=== PATIENT | female | born 1940 | race Caucasian/White ===

== ENCOUNTER → 2022-12-25 | Outpatient (CLI) | payer MEDICARE ==
[2022-12-25 15:48] LABS: Appearance, Urine Clear (Clear); Bilirubin, Urine Neg (Neg); Blood, Urine Neg (Neg); Color, Urine Yellow (P-Yellow); Glucose Qualitative, Urine Neg (Neg); Ketones, Urine Neg (Neg); Leukocyte Esterase, Urine Neg (Neg); Nitrite, Urine Neg (Neg); Protein, Urine Neg (Neg); Urobilinogen, Urine NORM (Normal); pH, Urine 6.5 (5.0-8.0)
[2022-12-25 16:02] LABS: Bacteria Rare /hpf; Red Blood Cells, Urine 0-2 /hpf (0-2); Squamous Epithelial Cells Few /hpf (Few); White Blood Cells, Urine 0-2 /hpf (0-5)
== END | disposition home or self-care (01) ==
LOC: LAB SHORT 11:22 → LAB 11:22 → LAB FUT 12-25 11:00
PROVIDERS: Internal Medicine
DX: N39.0 Urinary tract infection, site not specified (principal)
CPT/HCPCS: 81001; 81003

== ENCOUNTER 2023-03-02 08:14 | Emergency (ER) | payer MEDICARE ==
[~2023-03-02] VITALS: Ht 152.4 cm; Wt 49.9 kg
[2023-03-02 08:33] LABS: BASOPHILS ABSOLUTE AUTO 0.08 K/mm3 (0.00-0.23); BASOPHILS PERCENT AUTO 1 % (0-2); EOSINOPHILS ABSOLUTE AUTO 0.23 K/mm3 (0.00-0.68); EOSINOPHILS PERCENT AUTO 2 % (0-6); Hematocrit 38.8 % (33.0-51.0); Hemoglobin 13.2 g/dL (11.5-16.0); IMMATURE GRAN ABSOLUTE AUTO 0.01 K/mm3 (0.00-0.10); IMMATURE GRAN PERCENT AUTO 0 % (0-1); LYMPHOCYTES ABSOLUTE AUTO 2.17 K/mm3 (0.84-5.20); LYMPHOCYTES PERCENT AUTO 23 % (21-46); MONOCYTES ABSOLUTE AUTO 1.22 K/mm3 (0.16-1.47); MONOCYTES PERCENT AUTO 13 % (4-13); Mean Corpuscular HGB 28.7 pg (26.0-34.0); Mean Corpuscular Volume 84 fL (80-100); Mean Platelet Volume 10.4 fL (9.1-12.4); NEUTROPHILS ABSOLUTE AUTO 5.72 K/mm3 (1.96-9.15); NEUTROPHILS PERCENT AUTO 61 % (41-73); Platelet Count 248 K/mm3 (150-400); RDW Coefficient Variation 14.1 % (11.7-14.2); RDW Standard Deviation 43.3 fL (35.1-46.3); White Blood Cell Count 9.43 K/mm3 (4.00-11.30)
[2023-03-02 08:53] LABS: Albumin, Blood 3.1 g/dL (3.4-5.0); Albumin/Globulin Ratio 0.9 (0.8-1.8); Bilirubin, Total 0.5 mg/dL (0.1-1.0); Bun/Creatinine Ratio 28.5 (12.0-20.0); Calcium, Blood 8.6 mg/dL (8.5-10.1); Creatinine, Blood 0.77 mg/dL (0.40-1.00); Globulin, Blood 3.4 g/dL (2.2-4.0); Magnesium, Blood 2.3 mg/dL (1.6-2.4); Potassium, Blood 3.8 mmol/L (3.5-5.5); Total Protein, Blood 6.5 g/dL (6.4-8.2)
[2023-03-02] MEDS ORDERED: METO25ER (09:50)
[2023-03-02] MEDS ORDERED: EUTHYROX88 MCG (09:50)
[2023-03-02] MEDS ORDERED: FURO40 PO (11:47)
[2023-03-02 12:00] VITALS: BP 138/52
== END 2023-03-02 12:22 | disposition home or self-care (01) ==
LOC: ER 08:14
PROVIDERS: Emergency Medicine
DX: I50.9 Heart failure, unspecified (principal); Z88.8 Allergy status to other drugs, medicaments and biological substances; Z88.1 Allergy status to other antibiotic agents; I48.0 Paroxysmal atrial fibrillation
CPT/HCPCS: 71046; 80053; 83735; 83880; 84484; 85025; 93005; 93010; 99285-25

== ENCOUNTER 2023-03-12 14:15 | Observation (INO) | payer MEDICARE ==
[~2023-03-12] VITALS: Ht 152.4 cm; Wt 49.5 kg
[~2023-03-12 14:15] MED LIST: EUTHYROX88 MCG PO; FURO40 PO; METO25ER PO
[2023-03-12] MEDS ORDERED: ETHACRYNIC ACID PO (14:36)
[2023-03-12 14:45] LABS: BASOPHILS ABSOLUTE AUTO 0.09 K/mm3 (0.00-0.23); BASOPHILS PERCENT AUTO 1 % (0-2); EOSINOPHILS ABSOLUTE AUTO 0.22 K/mm3 (0.00-0.68); EOSINOPHILS PERCENT AUTO 2 % (0-6); Hematocrit 40.8 % (33.0-51.0); Hemoglobin 13.8 g/dL (11.5-16.0); IMMATURE GRAN ABSOLUTE AUTO 0.04 K/mm3 (0.00-0.10); IMMATURE GRAN PERCENT AUTO 0 % (0-1); LYMPHOCYTES ABSOLUTE AUTO 1.89 K/mm3 (0.84-5.20); LYMPHOCYTES PERCENT AUTO 18 % (21-46); MONOCYTES PERCENT AUTO 13 % (4-13); Mean Corpuscular HGB 28.8 pg (26.0-34.0); Mean Corpuscular HGB Conc 33.8 g/dL (31.5-36.5); Mean Corpuscular Volume 85 fL (80-100); Mean Platelet Volume 10.7 fL (9.1-12.4); NEUTROPHILS ABSOLUTE AUTO 6.93 K/mm3 (1.96-9.15); NEUTROPHILS PERCENT AUTO 66 % (41-73); Platelet Count 252 K/mm3 (150-400); RDW Coefficient Variation 13.9 % (11.7-14.2); RDW Standard Deviation 43.3 fL (35.1-46.3); Red Blood Cell Count 4.79 M/mm3 (3.80-5.20); White Blood Cell Count 10.57 K/mm3 (4.00-11.30)
[2023-03-12 15:03] LABS: Albumin, Blood 3.1 g/dL (3.4-5.0); Albumin/Globulin Ratio 0.9 (0.8-1.8); Bilirubin, Total 0.5 mg/dL (0.1-1.0); Calcium, Blood 8.5 mg/dL (8.5-10.1); Creatinine, Blood 0.81 mg/dL (0.40-1.00); Globulin, Blood 3.4 g/dL (2.2-4.0); Magnesium, Blood 2.2 mg/dL (1.6-2.4); Potassium, Blood 3.9 mmol/L (3.5-5.5); Total Protein, Blood 6.5 g/dL (6.4-8.2)
[2023-03-12 15:50] LABS: Influenza A, PCR NEGATIVE (NEGATIVE); Influenza B, PCR NEGATIVE (NEGATIVE); Resp Syncytial Virus, PCR NEGATIVE (NEGATIVE); SARS-Cov-2 (COVID-19) PCR, MMC NEGATIVE (NEGATIVE)
[2023-03-12 17:43] LABS: Free Thyroxine 1.32 ng/dL (0.70-1.60)
[2023-03-12 17:45] LABS: Thyroid Stimulating Hormone 0.432 uIU/mL (0.360-4.800)
[2023-03-12] MEDS ORDERED: DULO30 PO (19:52)
[2023-03-12] MEDS ORDERED: ELIQUIS2.5 MG PO (19:52)
[2023-03-12] MEDS ORDERED: VITB2 PO (19:54)
[2023-03-12 20:13] VITALS: BP 122/66
[2023-03-12] MEDS ORDERED: Crestor20 MG PO (20:15)
[2023-03-13 00:07] VITALS: BP 122/74
[2023-03-13 03:48] VITALS: BP 146/46
--- NOTE | 2023-03-13 04:11 | NUR ---
SHIFT SUMMARY ASSUMED CARE OF PT AT 1945. PT IS A/OX4. HEART SOUNDS REGULAR. LUNG SOUNDS HAVE FINE CRACKLES AT BASES. PT HAS NO COMPLAINTS. INDEPENDENT TO BATHROOM. BEEN OFF THE DILT GTT SINCE ARRIVAL TO UNIT. TELE SINUS APOLONIA. SLEPT T/O THE NOC.
[2023-03-13 04:42] LABS: Bun/Creatinine Ratio 28.2 (12.0-20.0); Calcium, Blood 8.8 mg/dL (8.5-10.1); Creatinine, Blood 0.78 mg/dL (0.40-1.00); Potassium, Blood 3.3 mmol/L (3.5-5.5)
[2023-03-13 08:06] VITALS: BP 140/53
[2023-03-13 11:51] VITALS: BP 148/130
[2023-03-13 15:23] VITALS: BP 129/46
[2023-03-13] MEDS ORDERED: FURO20 PO (17:10)
[2023-03-13] MEDS ORDERED: POTA10T PO (17:11)
--- NOTE | 2023-03-13 17:53 | NUR ---
DISCHARGE NOTE PT WAS ALERT AND ORIENTED X 4, VSS. HR NOTED TO BE SINUS RYTHM 50-60'S. SHE DENIED FEELINGS OF CHEST PAIN/PRESSURE, SOB AND NAUSEA/VOMITTING. SHE REPORTED OCCASIONAL DIZZINESS UPON AMBULATION. SHE WAS INDEPENDENT IN ROOM W/ FWW. DISCHARGE INSTRUCTIONS PROVIDED INCLUDING FOLLOW UP APPOINTMENT W/ PCP WELL W/ ACCOUNT RECEIVABLE ASSOCIATE DR. SILVA. PT REPORTED HAVING SCHEDULED APPOINTMENTS W/ BOTH DRRose Marie'S ALREADY. PT'S DAUGHTER KARSON WAS ALSO AT BEDSIDE. EDUCATION REGARDING DIAGNOSIS AND MEDICATIONS ALSO PROVIDED. PT LEFT PCU AT APPROX. 1730 W/ ALL OF PERSONAL BELONGINGS VIA WHEELCHAIR AND WAS ESCORTED OUTSIDE BY THIS RN.
== END 2023-03-13 17:38 | disposition home or self-care (01) ==
LOC: ER 14:15 → PCU 14:16
PROVIDERS: Nurse Practitioner Acute Care; Student in an Organized Health Care Education/Training Program; ADMIT Internal Medicine
DX: I48.0 Paroxysmal atrial fibrillation (principal); I50.9 Heart failure, unspecified; E03.9 Hypothyroidism, unspecified; Z79.890 Hormone replacement therapy; Z79.899 Other long term (current) drug therapy; Z88.2 Allergy status to sulfonamides; Z88.6 Allergy status to analgesic agent; Z11.52 Encounter for screening for COVID-19
CPT/HCPCS: 0241U; 36415; 71045; 80048; 80053; 83735; 83880; 84145; 84439; 84443; 84484; 85025; 93005; 93010; 93306; 96365; 96375; 96376; 99285-25; A9270; G0378; J1940

== ENCOUNTER 2023-03-24 21:32 | Observation (INO) | payer MEDICARE ==
[~2023-03-24] VITALS: Ht 167.6 cm; Wt 50.5 kg
[~2023-03-24 21:32] MED LIST changes: +Crestor20 MG PO; +DULO30 PO; +ELIQUIS2.5 MG PO; +ETHACRYNIC ACID PO; +FURO20 PO; +POTA10T PO; +VITB2 PO
[2023-03-24 22:01] LABS: BASOPHILS PERCENT AUTO 1 % (0-2); EOSINOPHILS ABSOLUTE AUTO 0.28 K/mm3 (0.00-0.68); EOSINOPHILS PERCENT AUTO 2 % (0-6); Hematocrit 38.3 % (33.0-51.0); Hemoglobin 13.1 g/dL (11.5-16.0); IMMATURE GRAN ABSOLUTE AUTO 0.03 K/mm3 (0.00-0.10); IMMATURE GRAN PERCENT AUTO 0 % (0-1); LYMPHOCYTES ABSOLUTE AUTO 2.58 K/mm3 (0.84-5.20); LYMPHOCYTES PERCENT AUTO 22 % (21-46); MONOCYTES ABSOLUTE AUTO 1.63 K/mm3 (0.16-1.47); MONOCYTES PERCENT AUTO 14 % (4-13); Mean Corpuscular HGB 28.9 pg (26.0-34.0); Mean Corpuscular HGB Conc 34.2 g/dL (31.5-36.5); Mean Corpuscular Volume 85 fL (80-100); Mean Platelet Volume 10.3 fL (9.1-12.4); NEUTROPHILS ABSOLUTE AUTO 6.88 K/mm3 (1.96-9.15); NEUTROPHILS PERCENT AUTO 60 % (41-73); Platelet Count 262 K/mm3 (150-400); RDW Coefficient Variation 13.6 % (11.7-14.2); RDW Standard Deviation 42.5 fL (35.1-46.3); Red Blood Cell Count 4.53 M/mm3 (3.80-5.20)
[2023-03-24 22:20] LABS: Albumin, Blood 3.2 g/dL (3.4-5.0); Albumin/Globulin Ratio 0.9 (0.8-1.8); Bilirubin, Total 0.3 mg/dL (0.1-1.0); Bun/Creatinine Ratio 34.7 (12.0-20.0); Calcium, Blood 8.8 mg/dL (8.5-10.1); Creatinine, Blood 0.92 mg/dL (0.40-1.00); Globulin, Blood 3.4 g/dL (2.2-4.0); Potassium, Blood 3.9 mmol/L (3.5-5.5); Total Protein, Blood 6.6 g/dL (6.4-8.2)
[2023-03-25 01:32] LABS: Magnesium, Blood 2.4 mg/dL (1.6-2.4); Phosphorus, Blood 3.8 mg/dL (2.5-4.9); Thyroid Stimulating Hormone 0.536 uIU/mL (0.360-4.800)
[2023-03-25 03:13] LABS: Anti-Xa UFH, PHA Monitoring 0.33 IU/mL; International Normalized Ratio 1.04; Prothrombin Time Results 10.9 Sec (9.7-11.5)
[2023-03-25 06:03] LABS: BASOPHILS ABSOLUTE AUTO 0.07 K/mm3 (0.00-0.23); BASOPHILS PERCENT AUTO 1 % (0-2); EOSINOPHILS ABSOLUTE AUTO 0.23 K/mm3 (0.00-0.68); EOSINOPHILS PERCENT AUTO 2 % (0-6); Hematocrit 37.5 % (33.0-51.0); Hemoglobin 12.6 g/dL (11.5-16.0); IMMATURE GRAN ABSOLUTE AUTO 0.03 K/mm3 (0.00-0.10); IMMATURE GRAN PERCENT AUTO 0 % (0-1); LYMPHOCYTES ABSOLUTE AUTO 2.32 K/mm3 (0.84-5.20); LYMPHOCYTES PERCENT AUTO 23 % (21-46); MONOCYTES ABSOLUTE AUTO 1.34 K/mm3 (0.16-1.47); MONOCYTES PERCENT AUTO 14 % (4-13); Mean Corpuscular HGB 28.4 pg (26.0-34.0); Mean Corpuscular HGB Conc 33.6 g/dL (31.5-36.5); Mean Corpuscular Volume 85 fL (80-100); Mean Platelet Volume 10.4 fL (9.1-12.4); NEUTROPHILS ABSOLUTE AUTO 5.91 K/mm3 (1.96-9.15); NEUTROPHILS PERCENT AUTO 60 % (41-73); Platelet Count 241 K/mm3 (150-400); RDW Coefficient Variation 13.7 % (11.7-14.2); RDW Standard Deviation 42.8 fL (35.1-46.3); Red Blood Cell Count 4.43 M/mm3 (3.80-5.20)
[2023-03-25 06:43] LABS: Bun/Creatinine Ratio 31.2 (12.0-20.0); Calcium, Blood 8.6 mg/dL (8.5-10.1); Creatinine, Blood 0.93 mg/dL (0.40-1.00); Potassium, Blood 4.1 mmol/L (3.5-5.5)
[2023-03-25 08:43] VITALS: BP 141/44
--- NOTE | 2023-03-25 10:00 | NUR ---
PT ARRIVED TO ROOM AT 0915 AND SETTLED IN TO BED. DAUGHTER AT BEDSIDE WITHIN 20 MINUTES. PT STATES SHE IS ON A GLUTEN FREE/LACTOSE FREE DIET. DENIES CHEST PAIN OR NAUSEA. ASSISTED UP TO BATHROOM WITH 1 PERSON ASSIST USING FWW. REPORTS FEELING A BIT DIZZY WHICH SHE STATES IS VERY COMMON AND USUALLY RESOLVES WITHIN MOMENTS. STATES SHE HAS A BALANCE ISSUE WELL SINCE A BELLS PALSY EVENT.
[2023-03-25] MEDS ORDERED: LEVOTHYROXINE75 MC9 PO (11:05)
[2023-03-25] MEDS ORDERED: MAG GLYCINATE100 MG PO (11:09)
[2023-03-25] MEDS ORDERED: Isosorbide Mono30 MG PO (11:11)
[2023-03-25 12:43] LABS: Source, Urine Clean Catch
[2023-03-25 12:46] LABS: Appearance, Urine Clear (Clear); Bilirubin, Urine Neg (Neg); Blood, Urine Neg (Neg); Color, Urine Yellow (P-Yellow); Glucose Qualitative, Urine Neg (Neg); Ketones, Urine Neg (Neg); Leukocyte Esterase, Urine Neg (Neg); Nitrite, Urine Neg (Neg); Protein, Urine Neg (Neg); Urobilinogen, Urine NORM (Normal)
[2023-03-25 15:19] VITALS: BP 106/40
[2023-03-25] MEDS ORDERED: METO25 PO (17:55)
[2023-03-25] MEDS ORDERED: ASPI81CH PO (17:55)
--- NOTE | 2023-03-25 18:42 | NUR ---
DISCHARGE INSTRUCTIONS COMPLETED AND DISCUSSED WITH PT EXPRESSING UNDERSTANDING. DAUGHTER HERE TO PICK PT UP. TO [facility] VIA W/C.
== END 2023-03-25 18:40 | disposition home or self-care (01) ==
LOC: ER 21:32 → ERHOLD 21:33 → MEDS 03-25 08:17
PROVIDERS: Emergency Medicine; Student in an Organized Health Care Education/Training Program; ADMIT Internal Medicine
DX: G45.9 Transient cerebral ischemic attack, unspecified (principal); I25.10 Atherosclerotic heart disease of native coronary artery without angina pectoris; I48.0 Paroxysmal atrial fibrillation; E03.9 Hypothyroidism, unspecified; I21.4 Non-ST elevation (NSTEMI) myocardial infarction; N18.2 Chronic kidney disease, stage 2 (mild)
CPT/HCPCS: 36415; 71046; 80048; 80053; 81003; 83735; 84100; 84443; 84484; 85025; 85520; 85610; 85730; 93005; 93010; 96361; 96365; 96366; 99285-25; A9270; G0378; J1644; J7030

== ENCOUNTER 2024-07-20 12:16 | Emergency (ER) | payer MEDICARE ==
[~2024-07-20] VITALS: Ht 152.4 cm; Wt 49.9 kg
[~2024-07-20 12:16] MED LIST changes: +ASPI81CH PO; +Isosorbide Mono30 MG PO; +LEVOTHYROXINE75 MC9 PO; +MAG GLYCINATE100 MG PO; +METO25 PO; +NEBI5 PO
[2024-07-20 12:22] VITALS: BP 122/101
[2024-07-20 12:48] LABS: BASOPHILS ABSOLUTE AUTO 0.08 K/mm3 (0.00-0.23); BASOPHILS PERCENT AUTO 1 % (0-2); EOSINOPHILS PERCENT AUTO 2 % (0-6); Hematocrit 43.2 % (33.0-51.0); Hemoglobin 14.8 g/dL (11.5-16.0); IMMATURE GRAN ABSOLUTE AUTO 0.03 K/mm3 (0.00-0.10); IMMATURE GRAN PERCENT AUTO 0 % (0-1); LYMPHOCYTES PERCENT AUTO 18 % (21-46); MONOCYTES ABSOLUTE AUTO 0.98 K/mm3 (0.16-1.47); MONOCYTES PERCENT AUTO 10 % (4-13); Mean Corpuscular HGB 29.2 pg (26.0-34.0); Mean Corpuscular HGB Conc 34.3 g/dL (31.5-36.5); Mean Corpuscular Volume 85 fL (80-100); Mean Platelet Volume 10.1 fL (9.1-12.4); NEUTROPHILS ABSOLUTE AUTO 6.66 K/mm3 (1.96-9.15); NEUTROPHILS PERCENT AUTO 69 % (41-73); Platelet Count 285 K/mm3 (150-400); RDW Coefficient Variation 14.7 % (11.7-14.2); RDW Standard Deviation 45.6 fL (35.1-46.3); Red Blood Cell Count 5.07 M/mm3 (3.80-5.20); White Blood Cell Count 9.65 K/mm3 (4.00-11.30)
[2024-07-20 13:15] LABS: Source, Urine Clean Catch
[2024-07-20 13:21] LABS: Albumin, Blood 3.4 g/dL (3.4-5.0); Bilirubin, Total 0.5 mg/dL (0.1-1.0); Bun/Creatinine Ratio 29.7 (12.0-20.0); Calcium, Blood 8.8 mg/dL (8.5-10.1); Creatinine, Blood 0.81 mg/dL (0.40-1.00); Globulin, Blood 3.5 g/dL (2.2-4.0); Potassium, Blood 3.7 mmol/L (3.5-5.5); Total Protein, Blood 6.9 g/dL (6.4-8.2)
[2024-07-20 13:25] LABS: Appearance, Urine Clear (Clear); Bilirubin, Urine Neg (Neg); Blood, Urine 1+ (Neg); Color, Urine Yellow (P-Yellow); Glucose Qualitative, Urine Neg (Neg); Ketones, Urine Neg (Neg); Leukocyte Esterase, Urine Neg (Neg); Nitrite, Urine Neg (Neg); Protein, Urine Neg (Neg); Urobilinogen, Urine NORM (Normal)
[2024-07-20 13:43] LABS: Bacteria Rare /hpf; Squamous Epithelial Cells Not Seen /hpf (Few); White Blood Cells, Urine 0-2 /hpf (0-5)
== END 2024-07-20 14:21 | disposition home or self-care (01) ==
LOC: ER 12:16
PROVIDERS: Physician Assistant
DX: G45.4 Transient global amnesia (principal); I48.91 Unspecified atrial fibrillation; E03.9 Hypothyroidism, unspecified; I50.30 Unspecified diastolic (congestive) heart failure; I25.10 Atherosclerotic heart disease of native coronary artery without angina pectoris; Z88.2 Allergy status to sulfonamides; Z88.8 Allergy status to other drugs, medicaments and biological substances; Z79.82 Long term (current) use of aspirin; Z79.01 Long term (current) use of anticoagulants; Z91.011 Allergy to milk products; Z79.890 Hormone replacement therapy; Z79.899 Other long term (current) drug therapy
CPT/HCPCS: 80053; 81001; 83690; 85025; 99284

== ENCOUNTER → 2024-07-22 | Outpatient (CLI) | payer MEDICARE | LOC: LAB 15:07 → LAB SHORT 15:07 | DX: R30.0 Dysuria (principal) | CPT/HCPCS: 87077; 87086; 87186 ==

== ENCOUNTER 2024-08-26 13:42 | Emergency (ER) | payer MEDICARE ==
[~2024-08-26] VITALS: Ht 152.4 cm; Wt 49.9 kg
[2024-08-26 14:03] VITALS: BP 102/42
[2024-08-26 14:29] LABS: BASOPHILS ABSOLUTE AUTO 0.09 K/mm3 (0.00-0.23); BASOPHILS PERCENT AUTO 1 % (0-2); EOSINOPHILS ABSOLUTE AUTO 0.17 K/mm3 (0.00-0.68); EOSINOPHILS PERCENT AUTO 1 % (0-6); Hematocrit 38.8 % (33.0-51.0); Hemoglobin 13.8 g/dL (11.5-16.0); IMMATURE GRAN ABSOLUTE AUTO 0.03 K/mm3 (0.00-0.10); IMMATURE GRAN PERCENT AUTO 0 % (0-1); LYMPHOCYTES ABSOLUTE AUTO 1.12 K/mm3 (0.84-5.20); LYMPHOCYTES PERCENT AUTO 9 % (21-46); MONOCYTES ABSOLUTE AUTO 1.39 K/mm3 (0.16-1.47); MONOCYTES PERCENT AUTO 12 % (4-13); Mean Corpuscular HGB 29.8 pg (26.0-34.0); Mean Corpuscular HGB Conc 35.6 g/dL (31.5-36.5); Mean Corpuscular Volume 84 fL (80-100); Mean Platelet Volume 10.4 fL (9.1-12.4); NEUTROPHILS ABSOLUTE AUTO 9.18 K/mm3 (1.96-9.15); NEUTROPHILS PERCENT AUTO 77 % (41-73); Platelet Count 296 K/mm3 (150-400); RDW Coefficient Variation 13.8 % (11.7-14.2); RDW Standard Deviation 42.6 fL (35.1-46.3); Red Blood Cell Count 4.63 M/mm3 (3.80-5.20); White Blood Cell Count 11.98 K/mm3 (4.00-11.30)
[2024-08-26 14:58] LABS: Albumin, Blood 3.3 g/dL (3.4-5.0); Albumin/Globulin Ratio 0.9 (0.8-1.8); Bilirubin, Total 0.7 mg/dL (0.1-1.0); Bun/Creatinine Ratio 20.2 (12.0-20.0); Calcium, Blood 8.6 mg/dL (8.5-10.1); Creatinine, Blood 0.79 mg/dL (0.40-1.00); Globulin, Blood 3.7 g/dL (2.2-4.0); Potassium, Blood 3.7 mmol/L (3.5-5.5)
[2024-08-26 16:24] LABS: Source, Urine Clean Catch
[2024-08-26 16:33] LABS: Appearance, Urine Clear (Clear); Bilirubin, Urine Neg (Neg); Blood, Urine 1+ (Neg); Color, Urine Yellow (P-Yellow); Glucose Qualitative, Urine Neg (Neg); Ketones, Urine Neg (Neg); Leukocyte Esterase, Urine Neg (Neg); Nitrite, Urine Neg (Neg); Protein, Urine Neg (Neg); Urobilinogen, Urine NORM (Normal)
[2024-08-26 16:45] LABS: Bacteria Rare /hpf; Red Blood Cells, Urine 0-2 /hpf (0-2); Squamous Epithelial Cells Not Seen /hpf (Few); White Blood Cells, Urine 0-2 /hpf (0-5)
[2024-08-26 17:43] LABS: Free Thyroxine 1.65 ng/dL (0.70-1.60)
[2024-08-26 17:46] LABS: Thyroid Stimulating Hormone 0.882 uIU/mL (0.360-4.800); Triiodothyronine, Free 2.67 pg/mL (2.18-3.98)
== END 2024-08-26 18:14 | disposition home or self-care (01) ==
LOC: ER 13:42
PROVIDERS: Emergency Medicine; Physician Assistant
DX: R41.0 Disorientation, unspecified (principal); T43.215A Adverse effect of selective serotonin and norepinephrine reuptake inhibitors, initial encounter; I48.91 Unspecified atrial fibrillation; Z88.2 Allergy status to sulfonamides; Z88.6 Allergy status to analgesic agent; Z91.018 Allergy to other foods; Z91.011 Allergy to milk products; Z79.899 Other long term (current) drug therapy; Z79.890 Hormone replacement therapy; Z79.1 Long term (current) use of non-steroidal anti-inflammatories (NSAID); Z79.2 Long term (current) use of antibiotics; Z79.52 Long term (current) use of systemic steroids
CPT/HCPCS: 70450; 80053; 81001; 84439; 84443; 84481; 85025; 93005; 93010; 99285-25

== ENCOUNTER 2024-08-29 12:56 | Inpatient (IN) | payer MEDICARE ==
[~2024-08-29] VITALS: Ht 152.4 cm; Wt 50.9 kg
[2024-08-29] MEDS ORDERED: NS 500 ML IV SCH (13:35)
[2024-08-29 13:44] LABS: BASOPHILS PERCENT AUTO 1 % (0-2); EOSINOPHILS ABSOLUTE AUTO 0.16 K/mm3 (0.00-0.68); EOSINOPHILS PERCENT AUTO 1 % (0-6); Hematocrit 41.4 % (33.0-51.0); IMMATURE GRAN ABSOLUTE AUTO 0.04 K/mm3 (0.00-0.10); IMMATURE GRAN PERCENT AUTO 0 % (0-1); LYMPHOCYTES ABSOLUTE AUTO 1.24 K/mm3 (0.84-5.20); LYMPHOCYTES PERCENT AUTO 10 % (21-46); MONOCYTES ABSOLUTE AUTO 1.32 K/mm3 (0.16-1.47); MONOCYTES PERCENT AUTO 11 % (4-13); Mean Corpuscular HGB 29.3 pg (26.0-34.0); Mean Corpuscular HGB Conc 33.8 g/dL (31.5-36.5); Mean Corpuscular Volume 87 fL (80-100); Mean Platelet Volume 9.9 fL (9.1-12.4); NEUTROPHILS ABSOLUTE AUTO 9.11 K/mm3 (1.96-9.15); NEUTROPHILS PERCENT AUTO 76 % (41-73); Platelet Count 339 K/mm3 (150-400); RDW Standard Deviation 44.2 fL (35.1-46.3); Red Blood Cell Count 4.78 M/mm3 (3.80-5.20); White Blood Cell Count 11.97 K/mm3 (4.00-11.30)
[2024-08-29] MEDS ORDERED: ETHACRYNIC ACID PO (13:48)
[2024-08-29] MEDS ORDERED: Metoprolol Tartrate 1 MG/ML 5 ML VIAL IV PRN (13:55)
[2024-08-29 14:12] LABS: Bun/Creatinine Ratio 19.3 (12.0-20.0); Calcium, Blood 8.6 mg/dL (8.5-10.1); Creatinine, Blood 0.83 mg/dL (0.40-1.00); Free Thyroxine 1.64 ng/dL (0.70-1.60); Magnesium, Blood 2.2 mg/dL (1.6-2.4); Potassium, Blood 3.7 mmol/L (3.5-5.5); Thyroid Stimulating Hormone 0.48 uIU/mL (0.360-4.800)
[2024-08-29] MEDS ORDERED: Lidocaine 2% Viscous Soln 20 ML,Nystatin 100,000 Unit/ml Susp 20 ML,Mag Hydrox/Al Hydro... MT PRN (15:45)
[2024-08-29] MEDS ORDERED: Ondansetron HCl 2 MG / ML 2ML Vial IV PRN (16:05)
[2024-08-29] MEDS ORDERED: NS 1,000 ML IV SCH (16:05)
[2024-08-29] MEDS ORDERED: Mag Sulfate 1 GM/D5% 100ML 100 ML IV STA (16:11)
[2024-08-29] MEDS ORDERED: Potassium Chloride 40 MEQ in NS 250 ML IV ONE (16:15)
[2024-08-29 17:07] LABS: Albumin, Blood 3.2 g/dL (3.4-5.0); Bilirubin, Direct 0.1 mg/dL (0.0-0.3); Bilirubin, Indirect 0.5 mg/dL (0.1-0.7); Bilirubin, Total 0.6 mg/dL (0.1-1.0); Globulin, Blood 3.1 g/dL (2.2-4.0); Total Protein, Blood 6.3 g/dL (6.4-8.2)
--- NOTE | 2024-08-29 18:20 | NUR ---
ADMISSION REPORT RECEIVED FROM ER NURSE. PATIENT ARRIVES TO PCU 19. PATIENT ABLE TO STAND AND PIVOT TO PCU BED WITH MINIMAL ASSISTANCE. POTASSIUM AND FLUIDS INFUSING PER EMAR. AMIO GTT STOPPED IN ER BUT BAG CAME WITH PATIENT. PATIENT ASKED ABOUT RESTARTING AMIO GTT, PATIENT STATED "MY ARM GOT NUMB ANG TINGLED AND MADE ME UNCOMFORTABLE". THIS RNEDUCATED PATIENT ON THE MEDICATIONAND ASKED PATIENT IF SHE WOULD WANT TO RESTART THE AMIO AND PATIENT STATED "I MIGHT TRY". PATIENT ATTEMPTED TO USE BESIDE COMMODE TO VOID, UNABLE. PATIENT ALERT, ORIENTED x-34 BUT FORGETFUL ABOUT SOME INFORMATION. BP STABLE. TELE READING BETWEEN ST AND AFLUTTER 120-130s. DENIES CHEST PAIN. PATIENT ORIENTED TO ROOM AND CALL LIGHT SYSTEM. CALL LIGHT IN REACH. WILL REPORT TO OWNER RN.
[2024-08-29 18:55] VITALS: BP 110/60
--- NOTE | 2024-08-29 19:36 | NUR ---
CARE ASSUMED NOW FOR THIS PATIENT. REPORT RECEIVED FROM DAY RN. PATIENT AND DAUGHTER ABLE TO PARTICIPATE IN BEDSIDE REPORT. CONTINUE CARE
[2024-08-29 20:29] VITALS: BP 132/75
[2024-08-29 20:44] LABS: Source, Urine Clean Catch
[2024-08-29 20:49] LABS: Bilirubin, Urine Neg (Neg); Blood, Urine 1+ (Neg); Glucose Qualitative, Urine Neg (Neg); Ketones, Urine 1+ (Neg); Leukocyte Esterase, Urine 3+ (Neg); Nitrite, Urine Neg (Neg); Protein, Urine 1+ (Neg); Specific Gravity, Urine 1.015 (1.003-1.022); Urobilinogen, Urine NORM (Normal)
[2024-08-29 20:55] LABS: Appearance, Urine Clear (Clear); Color, Urine Yellow (P-Yellow)
[2024-08-29 20:56] LABS: Bacteria Few /hpf; Red Blood Cells, Urine 0-2 /hpf (0-2); Squamous Epithelial Cells Not Seen /hpf (Few); Transitional Epithelial Cells Few /hpf (0-Rare); White Blood Cells, Urine 50-100 /hpf (0-5)
[2024-08-29] MEDS ORDERED: Apixaban 5 MG Tab PO SCH (21:00)
[2024-08-29 22:36] VITALS: BP 123/89
--- NOTE | 2024-08-29 22:54 | NUR ---
PATIENT CONVERTED TO NSR @ 2235 AMIODARONE DRIP INFUSING @33.3 MLS/HR
[2024-08-30] VITALS (21 sets, daily range): BP systolic 95–150; BP diastolic 42–112
[2024-08-30 04:47] LABS: BASOPHILS ABSOLUTE AUTO 0.08 K/mm3 (0.00-0.23); BASOPHILS PERCENT AUTO 1 % (0-2); EOSINOPHILS ABSOLUTE AUTO 0.33 K/mm3 (0.00-0.68); EOSINOPHILS PERCENT AUTO 3 % (0-6); Hematocrit 35.1 % (33.0-51.0); Hemoglobin 12.1 g/dL (11.5-16.0); IMMATURE GRAN ABSOLUTE AUTO 0.05 K/mm3 (0.00-0.10); IMMATURE GRAN PERCENT AUTO 1 % (0-1); LYMPHOCYTES ABSOLUTE AUTO 2.06 K/mm3 (0.84-5.20); LYMPHOCYTES PERCENT AUTO 19 % (21-46); MONOCYTES ABSOLUTE AUTO 1.25 K/mm3 (0.16-1.47); MONOCYTES PERCENT AUTO 11 % (4-13); Mean Corpuscular HGB 29.8 pg (26.0-34.0); Mean Corpuscular HGB Conc 34.5 g/dL (31.5-36.5); Mean Corpuscular Volume 87 fL (80-100); Mean Platelet Volume 10.3 fL (9.1-12.4); NEUTROPHILS ABSOLUTE AUTO 7.17 K/mm3 (1.96-9.15); NEUTROPHILS PERCENT AUTO 66 % (41-73); Platelet Count 288 K/mm3 (150-400); RDW Coefficient Variation 14.4 % (11.7-14.2); RDW Standard Deviation 45.1 fL (35.1-46.3); Red Blood Cell Count 4.06 M/mm3 (3.80-5.20); White Blood Cell Count 10.94 K/mm3 (4.00-11.30)
--- NOTE | 2024-08-30 05:12 | NUR ---
PATIENT AWAKE ALL NIGHT LONG. AT 0515 DECIDES SHE MIGHT TRY TO SLEEP. ANXIOUS ABOUT THE MEDICATIONS SHE IS RECEIVING. CONVERTED TO SINUS RHYTHM LAST NIGHT. AMIODORONE DRIP INFUSING. VOIDING ON BSC. STAND BY ASSIST. STLL HAVING SOME DRY MOUTH WITH PAIN. CONTINE CARE
[2024-08-30 05:14] LABS: Albumin, Blood 2.8 g/dL (3.4-5.0); Bilirubin, Total 0.5 mg/dL (0.1-1.0); Bun/Creatinine Ratio 18.5 (12.0-20.0); Calcium, Blood 8.1 mg/dL (8.5-10.1); Creatinine, Blood 0.81 mg/dL (0.40-1.00); Globulin, Blood 2.9 g/dL (2.2-4.0); Potassium, Blood 3.9 mmol/L (3.5-5.5); Total Protein, Blood 5.7 g/dL (6.4-8.2)
[2024-08-30] MEDS ORDERED: Levothyroxine Sodium 0.05 MG Tab PO SCH (06:00)
[2024-08-30] MEDS ORDERED: Carvedilol 3.125 MG Tab PO SCH (08:00)
[2024-08-30] MEDS ORDERED: Enoxaparin 30 MG/0.3 ML SYR SC SCH (09:00)
[2024-08-30] MEDS ORDERED: CefTRIAXone Sodium 1,000 MG in NS 100 ML IV SCH (09:50)
--- NOTE | 2024-08-30 16:36 | NUR ---
SHIFT SUMMARY PT REMAINS ALERT AND ORIENTED WITH SOME FORGETFULNESS. BP STABLE. HR REMAINS NSR. O2 SATS >90% ON RA. PT DENIES ANY PAIN. PT UP WITH SBA FOR TRANSFERS TO BSC NEEDED. PLAN TO TRANSFER TO MEDICAL FLOOR IN APPROXIMATELY 20 MIN WHEN AMIO GTT IS COMPLETE. REPORT GIVEN TO MEDICAL FLOOR RN.
--- NOTE | 2024-08-30 17:24 | NUR ---
UPDATE PT TAKEN TO MEDICAL FLOOR VIA WC WITH ALL BELONGINGS. DAUGHTER MARGARITA NOTIFIED OF ROOM CHANGE
--- NOTE | 2024-08-30 18:20 | NUR ---
SHIFT SUMMARY PT TRANSFERED FROM PCU 19 TO ROOM 326 THIS SHIFT AT 1730. PT NOTED TO BE A&O X4 WITH SOME CONFUSION AND FORGETFULNESS NOTED. PT NOTED TO TRANSFER FROM WHEELCHAIR TO BED VIA SBA. PT DAUGHTER NOTED TO BE AT BEDSIDE. PT CONT WITH TELE AND NOTED TO BE NSR.
[2024-08-30] MEDS ORDERED: Amiodarone HCl 200 MG Tab PO SCH (21:00)
[2024-08-30] MEDS ORDERED: Doxycycline Hyclate 100 MG TAB PO SCH (21:00)
[2024-08-30] MEDS ORDERED: Magnesium Oxide 400 MG Tab PO SCH (21:00)
[2024-08-31] VITALS (7 sets, daily range): BP systolic 99–135; BP diastolic 42–65
[2024-08-31 06:09] LABS: BASOPHILS ABSOLUTE AUTO 0.06 K/mm3 (0.00-0.23); BASOPHILS PERCENT AUTO 1 % (0-2); EOSINOPHILS ABSOLUTE AUTO 0.24 K/mm3 (0.00-0.68); EOSINOPHILS PERCENT AUTO 2 % (0-6); Hematocrit 33.1 % (33.0-51.0); Hemoglobin 11.4 g/dL (11.5-16.0); IMMATURE GRAN ABSOLUTE AUTO 0.04 K/mm3 (0.00-0.10); IMMATURE GRAN PERCENT AUTO 0 % (0-1); LYMPHOCYTES ABSOLUTE AUTO 1.56 K/mm3 (0.84-5.20); LYMPHOCYTES PERCENT AUTO 12 % (21-46); MONOCYTES ABSOLUTE AUTO 1.65 K/mm3 (0.16-1.47); MONOCYTES PERCENT AUTO 13 % (4-13); Mean Corpuscular HGB 29.5 pg (26.0-34.0); Mean Corpuscular HGB Conc 34.4 g/dL (31.5-36.5); Mean Corpuscular Volume 86 fL (80-100); Mean Platelet Volume 10.3 fL (9.1-12.4); NEUTROPHILS ABSOLUTE AUTO 9.03 K/mm3 (1.96-9.15); NEUTROPHILS PERCENT AUTO 72 % (41-73); Platelet Count 241 K/mm3 (150-400); RDW Coefficient Variation 14.2 % (11.7-14.2); RDW Standard Deviation 44.6 fL (35.1-46.3); Red Blood Cell Count 3.86 M/mm3 (3.80-5.20); White Blood Cell Count 12.58 K/mm3 (4.00-11.30)
[2024-08-31 06:32] LABS: Calcium, Blood 8.6 mg/dL (8.5-10.1); Creatinine, Blood 0.8 mg/dL (0.40-1.00); Potassium, Blood 3.9 mmol/L (3.5-5.5)
[2024-08-31] MEDS ORDERED: Bumetanide 1 MG Tab PO SCH (09:00)
[2024-08-31] MEDS ORDERED: DULoxetine HCL 30 MG Cap DR PO SCH (09:00)
[2024-08-31] MEDS ORDERED: Acyclovir 400 MG Tab PO SCH (09:00)
--- NOTE | 2024-08-31 17:49 | NUR ---
PT A&O X4, LIMITED CODE, DAUGHTERS AT BEDSIDE MOST OF THE DAY, SBA FOR TRANSFERS WITH WALKER, CONT OF URINE, BREATHING UNLABORED ON ROOM AIR, HAS LARGE SCRATCH UNDER RIGHT BREAST. PT SB IN 50'S FOR MOST OF DAY ON TELE AND CONVERTED AROUND 1750 TO AFIB WITH RATE OF 100-110. NO OTHER NEW CONCERNS THIS SHIFT.
[2024-08-31] MEDS ORDERED: DULoxetine HCL 20 MG Cap DR PO SCH (18:00)
--- NOTE | 2024-08-31 18:33 | NUR ---
REVIEWED CHARTING DONE BY AUSTIN GALE, STUDENT NURSE AND I AGREE WITH HER DOCUMENTATION FOR THIS PATIENT.
--- NOTE | 2024-08-31 22:45 | NUR ---
CARDIAC TIP TESTER REPORTS PT RHYTHM - STV 130s-150s. PT AMBULATING IN RESTROOM, PT ASYMPTOMATIC.
[2024-09-01 04:50] VITALS: BP 121/59
--- NOTE | 2024-09-01 06:13 | NUR ---
SHIFT SUMMARY S/P ADMIT R/T UTI. NO ACUTE CHANGES OVERNIGHT. VSS, TELE - AFIB. ONE EVENT PER PREVIOUS NOTE. TOLERATING ORALS. PO ABX PER EMAR. VOIDING IND. AMBULATES USING FWW c GB & SBA. PT DENIES PAIN. CALL LIGHT IN REACH, BED IN LOWEST POSITION, WILL REPORT TO DAY RN.
[2024-09-01 07:42] VITALS: BP 129/66
[2024-09-01 09:16] LABS: BASOPHILS ABSOLUTE AUTO 0.07 K/mm3 (0.00-0.23); BASOPHILS PERCENT AUTO 1 % (0-2); EOSINOPHILS ABSOLUTE AUTO 0.25 K/mm3 (0.00-0.68); EOSINOPHILS PERCENT AUTO 2 % (0-6); Hemoglobin 13.2 g/dL (11.5-16.0); IMMATURE GRAN ABSOLUTE AUTO 0.06 K/mm3 (0.00-0.10); IMMATURE GRAN PERCENT AUTO 1 % (0-1); LYMPHOCYTES ABSOLUTE AUTO 1.33 K/mm3 (0.84-5.20); LYMPHOCYTES PERCENT AUTO 11 % (21-46); MONOCYTES ABSOLUTE AUTO 1.35 K/mm3 (0.16-1.47); MONOCYTES PERCENT AUTO 11 % (4-13); Mean Corpuscular HGB 29.5 pg (26.0-34.0); Mean Corpuscular HGB Conc 33.8 g/dL (31.5-36.5); Mean Corpuscular Volume 87 fL (80-100); Mean Platelet Volume 10.4 fL (9.1-12.4); NEUTROPHILS ABSOLUTE AUTO 9.51 K/mm3 (1.96-9.15); NEUTROPHILS PERCENT AUTO 76 % (41-73); Platelet Count 262 K/mm3 (150-400); RDW Coefficient Variation 14.5 % (11.7-14.2); RDW Standard Deviation 46.3 fL (35.1-46.3); Red Blood Cell Count 4.48 M/mm3 (3.80-5.20); White Blood Cell Count 12.57 K/mm3 (4.00-11.30)
[2024-09-01 09:29] LABS: Bun/Creatinine Ratio 22.7 (12.0-20.0); Calcium, Blood 8.7 mg/dL (8.5-10.1); Creatinine, Blood 0.88 mg/dL (0.40-1.00); Potassium, Blood 3.5 mmol/L (3.5-5.5)
[2024-09-01] MEDS ORDERED: Potassium Chloride 20 MEQ TabCR PO ONE (12:00)
[2024-09-01] MEDS ORDERED: Cymbalta20 MG PO (15:03)
[2024-09-01] MEDS ORDERED: BUME1 PO (15:23)
[2024-09-01] MEDS ORDERED: EUTHYROX50 MCG PO (15:25)
[2024-09-01] MEDS ORDERED: ACYC400 PO (15:26)
[2024-09-01] MEDS ORDERED: AMIODARONE HCL400 M2 PO (15:29)
[2024-09-01] MEDS ORDERED: POTCHL20ER PO (15:30)
[2024-09-01] MEDS ORDERED: NYST237S MT (15:31)
[2024-09-01] MEDS ORDERED: MAG-OXIDE MAGN200 MG PO (15:33)
--- NOTE | 2024-09-01 16:11 | NUR ---
DISCHARGE SUMMARY PT DISCAHRGED BACK HOME TO [facility] WITH HH TO FOLLOW. EDUCATED PT AND PT DAUGHTER AT BASELINE REGARDING DISCHARGE PACKET INCLUDING MEDICATIONS ORDERED AND NEED TO FOLLOW UP WITH PCP AND FITNESS SALES CONSULTANT. HARD SCRIPT PROVIDED FOR FOLLOW UP LABS IN 3-5 DAYS. IV REMOVED AND SITE APPEARS WNL. MEDS ORIGINALLY FAXED TO [facility] [place] BUT DAUGHTER REPORTS MEDS WOUKLD NOT BE AVAILABLE UNTIL THE , SO THIS RN REFAXED TO [facility] PER DAUGHTER REQUEST. PT WHEELED DOWN BY JUDICIAL ADMINISTRATIVE ASSISTANT. PT ABLE TO STAND TRANSFER INDEPENDENTLY TO WHEELCHAIR.
== END 2024-09-01 16:16 | disposition home health service (06) | DRG 308 ==
LOC: ER 12:56 → ERHOLD 12:57 → PCU 12:57 → MEDS 08-30 17:26
PROVIDERS: Emergency Medicine; Internal Medicine; ADMIT Internal Medicine
DX: I48.0 Paroxysmal atrial fibrillation (principal); I50.43 Acute on chronic combined systolic (congestive) and diastolic (congestive) heart failure; N39.0 Urinary tract infection, site not specified; I11.0 Hypertensive heart disease with heart failure; E03.9 Hypothyroidism, unspecified; I25.10 Atherosclerotic heart disease of native coronary artery without angina pectoris; F41.9 Anxiety disorder, unspecified; F32.A Depression, unspecified; I08.0 Rheumatic disorders of both mitral and aortic valves; T46.2X5A Adverse effect of other antidysrhythmic drugs, initial encounter; K12.0 Recurrent oral aphthae; R53.1 Weakness; Z86.73 Personal history of transient ischemic attack (TIA), and cerebral infarction without residual deficits; Z88.2 Allergy status to sulfonamides; Z88.8 Allergy status to other drugs, medicaments and biological substances; Z91.018 Allergy to other foods; Z79.890 Hormone replacement therapy; Z79.82 Long term (current) use of aspirin; Z79.01 Long term (current) use of anticoagulants; Z79.899 Other long term (current) drug therapy; I25.2 Old myocardial infarction
CPT/HCPCS: 36415; 71045; 80048; 80053; 80076; 81001; 83735; 83880; 84439; 84443; 85025; 87086; 93005; 93010; 93306; 96361; 96365; 96375; 96376; 97110; 97116; 97162; 97530; 99285-25; A9270; G0378; J0282; J2405; J3475; J3480; J7030; J7050; J7060

== ENCOUNTER → 2024-09-05 | Outpatient (CLI) | payer MEDICARE ==
[~2024-09-05] MED LIST changes: +ACYC400 PO; +AMIODARONE HCL400 M2 PO; +BUME1 PO; +Cymbalta20 MG PO; +EUTHYROX50 MCG PO; +MAG-OXIDE MAGN200 MG PO; +NYST237S MT; +POTCHL20ER PO
[2024-09-05 13:22] LABS: Albumin, Blood 3.1 g/dL (3.4-5.0); Albumin/Globulin Ratio 0.9 (0.8-1.8); Bilirubin, Total 0.6 mg/dL (0.1-1.0); Bun/Creatinine Ratio 21.2 (12.0-20.0); Calcium, Blood 8.2 mg/dL (8.5-10.1); Creatinine, Blood 0.99 mg/dL (0.40-1.00); Globulin, Blood 3.3 g/dL (2.2-4.0); Potassium, Blood 3.3 mmol/L (3.5-5.5); Total Protein, Blood 6.4 g/dL (6.4-8.2)
== END ==
LOC: LAB SHORT 12:23 → LAB 12:23
PROVIDERS: Internal Medicine
DX: I48.91 Unspecified atrial fibrillation (principal)
CPT/HCPCS: 80053

== ENCOUNTER 2024-09-13 05:04 | Emergency (ER) | payer MEDICARE ==
[~2024-09-13] VITALS: Ht 149.9 cm; Wt 49.0 kg
[2024-09-13 05:43] LABS: BASOPHILS ABSOLUTE AUTO 0.08 K/mm3 (0.00-0.23); BASOPHILS PERCENT AUTO 1 % (0-2); EOSINOPHILS ABSOLUTE AUTO 0.38 K/mm3 (0.00-0.68); EOSINOPHILS PERCENT AUTO 3 % (0-6); Hematocrit 36.7 % (33.0-51.0); Hemoglobin 12.5 g/dL (11.5-16.0); IMMATURE GRAN ABSOLUTE AUTO 0.05 K/mm3 (0.00-0.10); IMMATURE GRAN PERCENT AUTO 0 % (0-1); LYMPHOCYTES ABSOLUTE AUTO 1.55 K/mm3 (0.84-5.20); LYMPHOCYTES PERCENT AUTO 11 % (21-46); MONOCYTES ABSOLUTE AUTO 1.52 K/mm3 (0.16-1.47); MONOCYTES PERCENT AUTO 11 % (4-13); Mean Corpuscular HGB 29.2 pg (26.0-34.0); Mean Corpuscular HGB Conc 34.1 g/dL (31.5-36.5); Mean Corpuscular Volume 86 fL (80-100); Mean Platelet Volume 10.1 fL (9.1-12.4); NEUTROPHILS ABSOLUTE AUTO 10.72 K/mm3 (1.96-9.15); NEUTROPHILS PERCENT AUTO 75 % (41-73); Platelet Count 305 K/mm3 (150-400); RDW Coefficient Variation 15.2 % (11.7-14.2); RDW Standard Deviation 47.5 fL (35.1-46.3); Red Blood Cell Count 4.28 M/mm3 (3.80-5.20)
[2024-09-13 06:03] LABS: Albumin, Blood 3.3 g/dL (3.4-5.0); Bilirubin, Total 0.8 mg/dL (0.1-1.0); Bun/Creatinine Ratio 22.7 (12.0-20.0); Calcium, Blood 8.5 mg/dL (8.5-10.1); Creatinine, Blood 0.88 mg/dL (0.40-1.00); Globulin, Blood 3.4 g/dL (2.2-4.0); Magnesium, Blood 2.4 mg/dL (1.6-2.4); Potassium, Blood 3.2 mmol/L (3.5-5.5); Total Protein, Blood 6.7 g/dL (6.4-8.2)
[2024-09-13] MEDS ORDERED: Potassium Chloride 40 MEQ in NS 250 ML IV ONE (06:35)
[2024-09-13 06:51] LABS: Influenza A, PCR NEGATIVE (NEGATIVE); Influenza B, PCR NEGATIVE (NEGATIVE); Resp Syncytial Virus, PCR NEGATIVE (NEGATIVE); SARS-Cov-2 (COVID-19) PCR, MMC NEGATIVE (NEGATIVE)
[2024-09-13] MEDS ORDERED: Bumetanide 0.25 MG/ML 10ML Vial IV ONE (07:05)
[2024-09-13] MEDS ORDERED: NS 1,000 ML IV SCH (08:25)
[2024-09-13 10:50] VITALS: BP 138/39
== END 2024-09-13 11:06 | disposition home or self-care (01) ==
LOC: ER 05:04
PROVIDERS: Student in an Organized Health Care Education/Training Program
DX: I11.0 Hypertensive heart disease with heart failure (principal); I50.20 Unspecified systolic (congestive) heart failure; I25.10 Atherosclerotic heart disease of native coronary artery without angina pectoris; Z11.52 Encounter for screening for COVID-19; Z79.890 Hormone replacement therapy; Z79.899 Other long term (current) drug therapy; Z79.01 Long term (current) use of anticoagulants
CPT/HCPCS: 0241U; 71046; 80053; 83735; 83880; 84484; 85025; 93005; 93010; 96365; 96366; 96375; 99285-25; J3480; J7030; J7050

== ENCOUNTER → 2024-09-21 | Outpatient (CLI) | payer MEDICARE ==
[2024-09-21 13:30] LABS: Source, Urine Clean Catch
[2024-09-21 14:17] LABS: Appearance, Urine Clear (Clear); Bilirubin, Urine Neg (Neg); Blood, Urine 2+ (Neg); Color, Urine Yellow (P-Yellow); Glucose Qualitative, Urine Neg (Neg); Ketones, Urine Neg (Neg); Leukocyte Esterase, Urine Neg (Neg); Nitrite, Urine Neg (Neg); Protein, Urine 1+ (Neg); Specific Gravity, Urine 1.005 (1.003-1.022); Urobilinogen, Urine NORM (Normal)
[2024-09-21 14:37] LABS: Bacteria Rare /hpf; Squamous Epithelial Cells Not Seen /hpf (Few); White Blood Cells, Urine 0-2 /hpf (0-5)
== END ==
LOC: LAB 08:00 → LAB SHORT 08:00
PROVIDERS: Internal Medicine
DX: N39.0 Urinary tract infection, site not specified (principal)
CPT/HCPCS: 81001

== ENCOUNTER → 2024-10-04 | Outpatient (CLI) | payer MEDICARE ==
[2024-10-04 16:24] LABS: International Normalized Ratio 1.08; Prothrombin Time Results 11.5 Sec (9.7-11.5)
[2024-10-04 19:16] LABS: Albumin, Blood 3.1 g/dL (3.4-5.0); Albumin/Globulin Ratio 0.9 (0.8-1.8); Bilirubin, Total 0.7 mg/dL (0.1-1.0); Bun/Creatinine Ratio 22.1 (12.0-20.0); Calcium, Blood 8.6 mg/dL (8.5-10.1); Creatinine, Blood 0.99 mg/dL (0.40-1.00); Globulin, Blood 3.6 g/dL (2.2-4.0); Potassium, Blood 3.4 mmol/L (3.5-5.5); Total Protein, Blood 6.7 g/dL (6.4-8.2)
== END ==
LOC: LAB SHORT 16:05 → LAB 16:05
PROVIDERS: Student in an Organized Health Care Education/Training Program
DX: I35.1 Nonrheumatic aortic (valve) insufficiency (principal)
CPT/HCPCS: 80053; 83880; 85610

== ENCOUNTER 2024-10-17 17:11 | Emergency (ER) | payer MEDICARE ==
[~2024-10-17] VITALS: Ht 149.9 cm; Wt 48.9 kg
[2024-10-17 20:00] VITALS: BP 135/31
[2024-10-17] MEDS ORDERED: Lidocaine 4% 1 Patch TOP ONE (20:35)
[2024-10-17] MEDS ORDERED: Acetaminophen 500 MG Tab PO ONE (20:35)
[2024-10-17] MEDS ORDERED: ASPERFLEX1 EACH TOP (20:37)
== END 2024-10-17 21:17 | disposition home or self-care (01) ==
LOC: ER 17:11
DX: R07.81 Pleurodynia (principal); M25.552 Pain in left hip; I48.91 Unspecified atrial fibrillation; E03.9 Hypothyroidism, unspecified; Z86.73 Personal history of transient ischemic attack (TIA), and cerebral infarction without residual deficits; Z79.899 Other long term (current) drug therapy; Z88.2 Allergy status to sulfonamides; Z91.040 Latex allergy status; Z88.1 Allergy status to other antibiotic agents; Z91.018 Allergy to other foods; Z88.5 Allergy status to narcotic agent
CPT/HCPCS: 71046; 73502; 99283-25; A9270

== ENCOUNTER → 2024-11-22 | Outpatient (CLI) | payer MEDICARE ==
[~2024-11-22] MED LIST changes: +ASPERFLEX1 EACH TOP
[2024-11-22 14:26] LABS: Bilirubin, Urine Neg (Neg); Glucose Qualitative, Urine Neg (Neg); Ketones, Urine Neg (Neg); Leukocyte Esterase, Urine 2+ (Neg); Protein, Urine 1+ (Neg); Specific Gravity, Urine 1.010 (1.003-1.022); Urobilinogen, Urine NORM (Normal)
[2024-11-22 15:27] LABS: Color, Urine Pale Yellow (P-Yellow)
== END ==
LOC: LAB 04:30 → LAB SHORT 04:30
PROVIDERS: Internal Medicine
DX: N39.0 Urinary tract infection, site not specified (principal)
CPT/HCPCS: 81001; 87086